=== PATIENT | female | born 1940 | race American Indian/Alaskan Native ===

== ENCOUNTER 2016-10-30 19:13 | Observation (INO) | payer MEDICARE ==
[2016-10-30 19:13] VITALS: BMI 31.7
[2016-10-30 21:16] LABS: ADD MANUAL DIFF? NO
[2016-10-30 21:25] LABS: BASO # 0.01 [, K/mm3] (0.0-2.0); BASO % 0.2 % (0.0-3.0); EOS # 0.2 (0.0-0.7); EOS % 2.4 % (1.5-5.0); GRAN # 4.15 (1.4-6.5); GRAN % 62.8 % (50.0-68.0); HEMATOCRIT 39.3 % (36.0-48.0); LYMPH # 1.7 (1.2-3.4); LYMPH % 26.1 % (22.0-35.0); MEAN CELL VOLUME 86.6 fL (80.0-105.0); MEAN CORPUSCULAR HEMOGLOBIN 29.3 pg (25.0-35.0); MEAN CORPUSCULAR HGB CONC 33.8 g/dl (31.0-37.0); MEAN PLATELET VOLUME 8.6 fl (7.0-11.0); MONO # 0.6 (0.1-0.6); MONO % 8.5 % (1.0-6.0); PLATELET COUNT 359 [, 10^3/uL] (120.0-450.0); RED CELL DISTRIBUTION WIDTH 14.3 % (11.5-14.5); WHITE BLOOD COUNT 6.6 [, 10^3/ul] (4.5-11.0)
[2016-10-30 21:29] LABS: ALB/GLOB RATIO 1.1 (1.1-1.8); ALKALINE PHOSPHATASE 108 U/L (38-133); ALT/SGPT 26 U/L (7-56); AST/SGOT 24 U/L (15-39); BILIRUBIN,TOTAL 0.5 mg/dL (0.2-1.3); BLOOD UREA NITROGEN 12 mg/dL (7-21); CALCIUM 9.4 mg/dL (8.4-10.5); CARBON DIOXIDE 29 mmol/L (21-33); CHLORIDE 101 mmol/L (98-107); GFR AFRICAN-AMERICAN > 60; GLUCOSE,RANDOM 99 mg/dL (70-110); POTASSIUM 3.5 mmol/L (3.6-5.0); SODIUM 141 mmol/L (132-148); TOTAL PROTEIN 8.9 g/dL (5.8-8.3); URINE APPEARANCE CLEAR (CLEAR); URINE BILIRUBIN NEGATIVE (NEGATIVE); URINE BLOOD TRACE-LYSED (NEGATIVE); URINE COLOR YELLOW (YELLOW); URINE GLUCOSE (UA) NEGATIVE (NEGATIVE); URINE KETONE NEGATIVE (NEGATIVE); URINE LEUKOCYTE ESTERASE TRACE Leu/uL (NEGATIVE); URINE PROTEIN NEGATIVE mg/dL (<30 mg/dL); URINE UROBILINOGEN 0.2 E.U./dL (<1 E.U./dL)
[2016-10-30 21:34] LABS: URINE BACTERIA FEW (NEG); URINE RBC 0 - 2 /hpf (0-2)
[2016-10-30 21:41] LABS: TROPONIN I 0.02 ng/mL
--- NOTE | 2016-10-31 01:58 | ED PDOC ---
Arrival/HPI - General Historian: Patient, Family <Jhoana Camacho - Last Filed: 10/31/16 01:59> <Matthew Butcher - Last Filed: 10/31/16 02:34> - General Chief Complaint: Dizziness/Lightheaded Time Seen by Provider: 10/30/16 19:42 - History of Present Illness Narrative History of Present Illness (Text): 10/31/16 01:54 75-year-old female presents today with Dizziness weakness and near syncope that started this morning. Patient states she always is a little dizzy but this morning she was extremely dizzy to the point where she was unable to get out of bed. Patient states when she was able to get out of bed it was as if she was going to pass out. Patient states she has been feeling generally weak over the past few days and is having difficulty doing daily routine due to significant weakness. No vomiting or diarrhea. No chest pain or shortness of breath. Patient states she's been taking meclizine for dizziness without improvement. No other complaints (Jhoana Camacho) Past Medical History - Provider Review Nursing Documentation Reviewed: Yes - Travel History Have you recently traveled outside [place] w/in the past 3 mons?: No - Cardiac Hx Cardiac Disorders: Yes Hx Hypertension: Yes - Pulmonary Hx Respiratory Disorders: Yes (H/O OF SMOKING CIGARETTES) - Neurological Hx Neurological Disorder: Yes (VERTIGO,NEAR SYNCOPE) Hx Dizziness: Yes - HEENT Hx HEENT Disorder: Yes Other/Comment: MENIERE's Disease - Renal Hx Renal Disorder: No - Endocrine/Metabolic Hx Hypothyroidism: Yes - Hematological/Oncological Hx Blood Disorders: No - Integumentary Hx Dermatological Disorder: No - Musculoskeletal/Rheumatological Hx Musculoskeletal Disorders: Yes (RIGHT KNEE ARTHROSCOPY) Hx Falls: Yes Hx Spinal Stenosis: Yes Hx Unsteady Gait: Yes Other/Comment: SCIATICA. rotator cuff tear to left shoulder. carpal tunnel syndrome - Gastrointestinal Hx Gastrointestinal Disorders: No - Genitourinary/Gynecological Hx Genitourinary Disorders: No - Psychiatric Hx Psychophysiologic Disorder: No Hx Substance Use: No - Surgical History Hx Cholecystectomy: Yes - Anesthesia Hx Anesthesia: No Hx Anesthesia Reactions: No Hx Malignant Hyperthermia: No <Jhoana Camacho - Last Filed: 10/31/16 01:59> Family/Social History - Physician Review Nursing Documentation Reviewed: Yes Family/Social History: Unknown Family HX Smoking Status: Former Smoker Hx Alcohol Use: No Hx Substance Use: No <RodJhoana guadalupe Rima - Last Filed: 10/31/16 01:59> Allergies/Home Meds <DougJhoana T - Last Filed: 10/31/16 01:59> <GuadalupeMatthew - Last Filed: 10/31/16 02:34> Allergies/Adverse Reactions: Allergies No Known Allergies Allergy (Verified 07/06/16 11:39) Home Medications: Home Meds Medication Instructions Recorded Confirmed Hydrochlorothiazide [Microzide] 12.5 mg PO DAILY 07/06/16 07/06/16 Levothyroxine [Synthroid] 75 mcg PO DAILY 07/06/16 07/06/16 Lisinopril [Zestril] 10 mg PO DAILY 07/06/16 07/06/16 Meclizine HCl 12.5 mg PO PRN PRN 07/06/16 07/06/16 Simvastatin 20 mg PO HS 07/06/16 07/06/16 amLODIPine [Norvasc] 10 mg PO DAILY 07/06/16 07/06/16 Review of Systems - Review of Systems Constitutional: absent: Fatigue, Fevers Eyes: absent: Vision Changes, Photophobia, Eye Pain Respiratory: absent: SOB, Cough Cardiovascular: absent: Chest Pain, Palpitations Gastrointestinal: absent: Abdominal Pain, Nausea, Vomiting Musculoskeletal: absent: Arthralgias Skin: absent: Rash, Pruritis Neurological: Dizziness. absent: Headache, Focal Weakness, Disequilibrium Psychiatric: absent: Anxiety, Depression, Suicidal Ideation <RodanayeliJhoana T - Last Filed: 10/31/16 01:59> Physical Exam Vital Signs Reviewed: Yes Temperature: Afebrile Blood Pressure: Normal Pulse: Regular Respiratory Rate: Normal Appearance: Positive for: Well-Appearing, Non-Toxic, Comfortable Pain Distress: None Mental Status: Positive for: Alert and Oriented X 3 - Systems Exam Head: Present: Atraumatic Pupils: Present: PERRL Extroacular Muscles: Present: EOMI Conjunctiva: Present: Normal Ears: Present: Normal, NORMAL TM Mouth: Present: Moist Mucous Membranes Pharnyx: Present: Normal Neck: Present: Normal Range of Motion, Trachea Midline Respiratory/Chest: Present: Clear to Auscultation, Good Air Exchange. No: Respiratory Distress, Accessory Muscle Use Cardiovascular: Present: Regular Rate and Rhythm, Normal S1, S2. No: Murmurs Abdomen: No: Tenderness Upper Extremity: Present: Normal ROM Lower Extremity: Present: Normal ROM Neurological: Present: GCS=15 Skin: Present: Warm, Dry, Normal Color. No: Rashes Psychiatric: Present: Alert, Oriented x 3 <Jhoana Camacho - Last Filed: 10/31/16 01:59> Medical Decision Making <Jhoana Camacho - Last Filed: 10/31/16 01:59> <Matthew Butcher - Last Filed: 10/31/16 02:34> ED Course and Treatment: 10/31/16 01:56 75yr old female with near syncope and dizziness. with generalized weakness. cbc: wnl cmp; wnl trop; wnl ua; trace leukocytes ct head; FINDINGS: Brain: There is moderate diffuse cerebral atrophy present, consistent with this patient's age.Areas of decreased attenuation noted within the periventricular and subcortical white matter likely related to chronic microangiopathic ischemic changes given the patient's stated age.Streak artifact limits evaluation of the skull base. No evidence of acute intracranial hemorrhage. Correlate clinically. Ventricles: Unremarkable. No ventriculomegaly. Bones/joints: See above. Soft tissues: Unremarkable. Vasculature: Atherosclerotic calcifications of the carotid siphons. Sinuses: Unremarkable as visualized. No acute sinusitis. Mastoid air cells: Unremarkable as visualized. No mastoid effusion. IMPRESSION: Streak artifact limits evaluation of the skull base. No evidence of acute intracranial hemorrhage. CT can miss an acute nonhemorrhagic CVA. It should be noted that acute strokes may be initially radiologically occult on CT. If the patient is having persistent stroke like symptomatology, then MRI may be beneficial. ekg; normal sinus rhythm at 76 bpm normal axis normal intervals no ST elevations cxr; wnl case discussed with Dr. Mauricio. Will admit observational status to telemetry for near syncope asa po Meclizine given by mouth impression: Near syncope, dizziness Admit telemetry observation 10/31/16 01:59 (Jhoana Camacho) - Lab Interpretations Lab Results: 10/30/16 21:00 10/30/16 21:00 Lab Results 10/30/16 21:00: WBC 6.6 D, RBC 4.54, Hgb 13.3, Hct 39.3, MCV 86.6, MCH 29.3, MCHC 33.8, RDW 14.3, Plt Count 359, MPV 8.6, Gran % 62.8, Lymph % (Auto) 26.1, Bay % (Auto) 8.5 H, Eos % (Auto) 2.4, Baso % (Auto) 0.2, Gran # 4.15, Lymph # 1.7, Bay # 0.6, Eos # 0.2, Baso # 0.01 10/30/16 21:00: Sodium 141, Potassium 3.5 L, Chloride 101, Carbon Dioxide 29, Anion Gap 15, BUN 12, Creatinine 0.9, Est GFR ( Amer) > 60, Est GFR (Non- Af Amer) > 60, Random Glucose 99, Calcium 9.4, Total Bilirubin 0.5, AST 24, ALT 26, Alkaline Phosphatase 108, Lactate Dehydrogenase 463, Total Creatine Kinase 87, Troponin I 0.02, Total Protein 8.9 H, Albumin 4.6, Globulin 4.3, Albumin/ Globulin Ratio 1.1 10/30/16 21:00: Urine Color Yellow, Urine Appearance Clear, Urine pH 7.0, Ur Specific [place] <= 1.005, Urine Protein Negative, Urine Glucose (UA) Negative, Urine Ketones Negative, Urine Blood Trace-lysed H, Urine Nitrate Negative, Urine Bilirubin Negative, Urine Urobilinogen 0.2, Ur Leukocyte Esterase Trace H , Urine RBC 0 - 2, Urine WBC 1 - 3, Ur Epithelial Cells 3 - 4, Urine Bacteria Few - RAD Interpretation Radiology Orders: 10/30/16 19:42 CHEST PORTABLE [RAD] Stat 10/30/16 19:43 HEAD W/O CONTRAST [CT] Stat - Medication Orders Current Medication Orders: Discontinued Medications Aspirin (Aspirin) 325 mg PO STAT STA Stop: 10/31/16 01:56 Last Admin: 10/31/16 02:07 Dose: 325 mg Meclizine HCl (Antivert) 12.5 mg PO STAT STA Stop: 10/31/16 00:48 Last Admin: 10/31/16 01:27 Dose: 12.5 mg - PA / MULTIPLE [employer]WMEMBER / Resident Statement MIROSLAVA has reviewed & agrees with the documentation as recorded. MIROSLAVA has examined the patient and agrees with the treatment plan. <Matthew Butcher - Last Filed: 10/31/16 02:34> Disposition/Present on Arrival - Present on Arrival Any Indicators Present on Arrival: No History of DVT/PE: No History of Uncontrolled Diabetes: No Urinary Catheter: No History of Decub. Ulcer: No History Surgical Site Infection Following: None - Disposition Have Diagnosis and Disposition been Completed?: Yes Disposition Time: 00:10 Patient Plan: Observation, Telemetry <Jhoana Camacho - Last Filed: 10/31/16 01:59> <Matthew Butcher - Last Filed: 10/31/16 02:34> - Disposition Diagnosis: Near syncope Disposition: HOSPITALIZED Patient Problems: Current Active Problems Problem Status Onset Near syncope Acute Condition: FAIR
--- NOTE | 2016-10-31 07:18 | CT ---
PROCEDURE: CT HEAD WITHOUT CONTRAST. HISTORY: dizziness COMPARISON: Comparison is made to the previous study dated 07/06/2016 TECHNIQUE: Axial computed tomography images were obtained through the head/brain without intravenous contrast. Radiation dose: Total exam DLP = 822.62 mGy-cm. This CT exam was performed using one or more of the following dose reduction techniques: Automated exposure control, adjustment of the mA and/or kV according to patient size, and/or use of iterative reconstruction technique. FINDINGS: HEMORRHAGE: No intracranial hemorrhage. BRAIN: No mass effect or edema. Periventricular hypodensities are again noted more prominent at the right coronal radiata centrum semiovale likely represent chronic microvascular ischemic disease. VENTRICLES: Unremarkable. No hydrocephalus. CALVARIUM: Unremarkable. PARANASAL SINUSES: Unremarkable as visualized. No significant inflammatory changes. MASTOID AIR CELLS: Unremarkable as visualized. No inflammatory changes. OTHER FINDINGS: None. IMPRESSION: No evidence of acute intracranial hemorrhage territorial infarct mass effect or midline shift. Re- demonstration of periventricular hypodensities likely represent chronic microvascular ischemic disease. Preliminary report was submitted by virtual Radiology.
--- NOTE | 2016-10-31 07:39 | RAD ---
HISTORY: dizziness, weakness COMPARISON: Comparison is made to 07/06/2016 FINDINGS: LUNGS: No active pulmonary disease. PLEURA: No significant pleural effusion identified, no pneumothorax apparent. CARDIOVASCULAR: Normal. OSSEOUS STRUCTURES: Arthritic degenerative changes seen at the shoulders. Small metallic structure seen at the left shoulder likely due to prior rotator cuff tear repair VISUALIZED UPPER ABDOMEN: Normal. OTHER FINDINGS: None. IMPRESSION: No active disease. No significant interval change.
[2016-10-31] MEDS: Levothyroxine 75 MCG TAB PO SCH (08:15)
--- NOTE | 2016-10-31 09:56 | CARD ---
APPROVED REPORT EKG Measurement Heart [id number] <Conclusion> Normal sinus rhythm Normal ECG
--- NOTE | 2016-10-31 14:04 | CON ---
DATE: 10/31/2016 CHIEF COMPLAINT: Dizziness and lightheadedness. HISTORY OF PRESENT ILLNESS: This is a 75-year-old -[place] woman who is well known to me fro m a previous admission in 06/2016 with past medical history of chronic back pain with L2-L3 and L4-L5 lumbosacral radiculopathies, chronic back pain with musculoskeletal component, history of hypothyroid ism, hypertension, spinal stenosis, vertigo with B12 deficiency, currently not taking B12, last B12 l evel was 168, comes in with generalized weakness in terms of near syncope and lightheadedness. She s ays she gets up from a sitting to a standing position and gets lightheaded and feels like she is areli g to pass out. Her blood pressures have been on the lower side systolically and diastolically. She says she is taking meclizine for dizziness, which she has not had any improvement. She has not done any vestibular therapy. She denies any focal weakness or any paresthesias in the extremities. She d oes not drink adequate fluids throughout the day. Her initial blood pressure is 108/99. She is curr ently sitting up in no acute distress. PAST MEDICAL HISTORY: Hypothyroidism, spinal stenosis, chronic low back pain, vertigo, hypertension. ALLERGIES: No known drug allergies. MEDICATIONS: Reviewed via nurse's reconciliation sheet. SOCIAL HISTORY: No illicit drug use, smoking, or ETOH abuse. FAMILY HISTORY: Noncontributory. REVIEW OF SYSTEMS: A 14-point review of systems is negative except for the HPI. PHYSICAL EXAMINATION: VITAL SIGNS: Temperature 98, pulse rate is 61, blood pressure 108/79 and respiratory rate of 18, oxy gen saturation 99% on room air. GENERAL: The patient is sitting up in bed in no acute distress. HEENT: Atraumatic, normocephalic. PERRLA. Extraocular muscles intact. NECK: Supple, no JVD, no adenopathy noted. LUNGS: Clear to auscultation. No adventitious sounds. HEART: S1, S2, normal rate and rhythm. No murmurs, rubs, or gallops. ABDOMEN: Soft, nontender, nondistended. Bowel sounds are present. EXTREMITIES: No clubbing, no cyanosis. Peripheral pulses 2+ felt bilaterally. NEUROLOGIC: The patient is alert, oriented to person, place, month and year. Speech is fluent, with out any errors. Cranial nerves II through XII are intact. MOTOR EXAM: Moves all extremities equally. Toes downgoing bilaterally. SENSORY: Decreased light touch and pinprick up to the calves bilaterally. DTRs are 2+ throughout an d 1 at the knees and ankles. COORDINATION: [id number] is intact. Gait is deferred for now. LABORATORY DATA: Sodium is 141, potassium 3.5, chloride 101, carbon dioxide 29, BUN of 12, creatinin e 0.9, random glucose 99. ASSESSMENT AND PLAN: This is a 75-year-old -[place] woman with history of vertigo, history o f near syncope in terms of lightheadedness, history of spinal stenosis with chronic back pain at L2-L 3 and L4-L5 lumbosacral radiculopathies with musculoskeletal component, history of hypothyroidism, ca me to the hospital with history of B12 deficiency with last low B12 level 168, has not been taking B1 2 supplementation, who came in with near syncope, felt lightheaded when getting up from a sitting to a standing position, felt generalized weakness in the bed, felt like she was going to pass out and fe lt generally weak all over and been having difficulty doing her activities of daily living. She does not hydrate throughout the day. I feel like her dizziness is more of transient cerebral hypoperfusi on to the brain from lightheadedness with a vertiginous component and deconditioned state. I recomme nd: 1. Physical therapy as an outpatient for underlying deconditioned state. 2. Should have B12 supplementation, at least 1000 mcg p.o. daily. 3. Keep her systolic blood pressures between 120-130 mmHg and advise hydration. 4. Outpatient vestibular therapy for the vertiginous part. At this time, continue with current medical management and will get a carotid Doppler. Please recons ult if necessary. Thank you for this consult. Preston Bridges MD cc: [id number] TT: 10/31/2016 14:04:12 Confirmation # [id number] Dictation # [id number] wagner
--- NOTE | 2016-10-31 15:21 | HP ---
CHIEF COMPLAINT AND HISTORY OF PRESENT ILLNESS: This is a 75-year-old female who is coming into the hospital with complaints of dizziness. She states she has a history of vertigo and has been using Antivert 12.5 mg. She said that the dizziness was much worse yesterday. She said she had a difficult time getting out of bed. She was not able to ambulate well. She was weak. She came in for further evaluation. She denies any chest pain, no shortness of breath, no nausea, no vomiting. She says that she has M?ni?re's disease. REVIEW OF SYSTEMS: All other review of systems are within normal limits except as mentioned. PAST MEDICAL HISTORY: Hypertension, dyslipidemia, hypothyroidism, spinal stenosis, vertigo. ALLERGIES: No known drug allergies. MEDICATIONS: Hydrochlorothiazide, levothyroxine, lisinopril, meclizine, simvastatin, amlodipine. PAST SURGICAL HISTORY: 1. Carpal tunnel surgery of both hands. 2. Right knee arthroscopy. 3. Cholecystectomy. SOCIAL HISTORY: She is a former smoker. She drinks socially. FAMILY HISTORY: Noncontributory. PHYSICAL EXAMINATION: VITAL SIGNS: Temperature is 98, pulse of 61, blood pressure 133/59, height is 5 feet 10, weight is 210 pounds, respirations 14. GENERAL: Patient lying in bed, flat, and in no apparent distress. HEAD AND NECK EXAM: Atraumatic, normocephalic. Conjunctivae are pink. Throat clear and mouth with moist mucosa. Oropharynx benign. EYES: Extraocular movements are intact. PERRLA. NECK: Supple. No JVD, thyromegaly, or adenopathy. No bruits. HEART: S1 and S2 regular rate and rhythm. No murmurs, rubs, or gallops. LUNGS: Clear to auscultation bilaterally. No wheezing rales or rhonchi appreciated. No retractions on exam. ABDOMEN: Soft, nontender, nondistended. Bowel sounds are positive in all quadrants. No rebound. No hepatosplenomegaly. EXTREMITIES: No cyanosis, clubbing, or edema. NEURO: No facial asymmetry, tongue is midline, no uvula deviation. Power is 5 /5 in upper extremity and 5/5 in lower extremity. Sensation is normal in upper extremity and lower extremity. PSYCH: Awake, alert, oriented x3. No anxiety or depression symptoms. Good insight. Normal affect. : No CVA tenderness VASCULAR: 2+ pulses in carotid and pedal pulses. SKIN: No erythema or abnormal nodules noted. SPINE: Normal curvature. LYMPHADENOPATHY: No anterior cervical or posterior cervical adenopathy. No inguinal adenopathy. LABORATORY DATA: White count of 6.6, hemoglobin 13.3, platelets . Chemistry shows a sodium 141, potassium 3.5. Urine shows blood that is trace, nitrites are negative, bilirubin is negative. CT of the head that showed no evidence of acute intracranial hemorrhage. EKG shows sinus rhythm with a rate of 76. Chest x-ray shows no active disease. ASSESSMENT: 1. Vertigo. 2. Dyslipidemia. 3. Hypertension. 4. Hypothyroidism. PLAN: The patient is going to be admitted to the hospital. I have asked neurology to evaluate the patient. The patient is on Zestril for hypertension. She is going to be on Synthroid for hypothyroidism. She is on hydrochlorothiazide for hypertension also. I increased her meclizine to 25 mg. She is on amlodipine for her hypertension. She is on Lipitor for dyslipidemia. I will get neuro and cardiology to evaluate the patient. I will discontinue the patient's telemetry monitoring. The patient's troponin has been negative. Ivan Mauricio MD cc: [id number] TT: 10/31/2016 15:21:08 wagner DIA
--- NOTE | 2016-10-31 17:43 | US ---
PROCEDURE: Bilateral carotid artery duplex ultrasound HISTORY: Carotid stenosis syncope PHYSICIAN(S): Nav Peralta MD. TECHNIQUE: Duplex sonography and color-flow Doppler were used to evaluate the carotid bifurcations and limited segments of the vertebral arteries bilaterally. FINDINGS: There is mild to moderate diffuse heterogeneous echogenic plaque noted at the carotid bifurcations bilaterally. The peak systolic velocity in the proximal right internal carotid artery is 112 cm/sec. This corresponds to a 40-59 percent proximal right ICA stenosis. Normal systolic velocities are noted in the proximal right external carotid artery. There is antegrade flow in the right vertebral artery. The peak systolic velocity in the proximal left internal carotid artery is 98 cm/sec. This corresponds to a 20 to 39% proximal left ICA stenosis. Normal systolic velocities are noted in the proximal left external carotid artery. The left vertebral artery is not visualized and may be occluded. IMPRESSION: 1. 40-59 percent proximal right ICA stenosis. 2. 20 - 39 percent proximal left ICA stenosis. 3. Antegrade flow in the right vertebral artery. The left vertebral artery is not identified may be occluded.
--- NOTE | 2016-11-01 07:07 | PN ---
DATE: 11/01/2016 SUBJECTIVE: The patient has no complaints of any chest pain, no shortness of breath. She says that she gets dizziness at times. PHYSICAL EXAMINATION: VITAL SIGNS: Temperature is 97.8, pulse of 67, blood pressure 116/62, respiration is 20. GENERAL: The patient comfortable, in no acute distress. HEENT: Anicteric sclerae. Moist mucosa. NECK: No JVD or adenopathy. CARDIAC: S1/S2. No murmurs. No rubs. Regular. RESPIRATORY: Clear to auscultation bilaterally. No wheezes, rales, or rhonchi. Good air entry. ABDOMEN: Bowel sounds are positive, soft, nontender, and nondistended. EXTREMITIES: No edema. Has 1+ pulses. ASSESSMENT: 1. Vertigo. 2. Dyslipidemia. 3. Hypertension. 4. Hypothyroidism. PLAN: The patient is on her Antivert. She was seen by neurology. She is currently off telemetry. She has carotid Dopplers that are reviewed. Zestril and HCTZ for hypertension. She is going to be on Synthroid for hypothyroidism. I increased her meclizine to 25 mg. She is on amlodipine for her hypertension. She is on Lipitor for dyslipidemia. Will D/C after Echo. Ivan Mauricio MD cc: [id number] TT: 11/01/2016 07:07:33 Confirmation # [id number] Dictation # [id number] nela DIA
[2016-11-01] MEDS: Levothyroxine 75 MCG TAB PO SCH (08:17)
[2016-11-01 08:37] VITALS: BP 123/70; PULSE 62; RESP 18; TEMP 98; O2SAT 99
--- NOTE | 2016-11-01 12:10 | CON ---
DATE: 11/01/2016 REQUESTING PHYSICIAN: Dr. Mauricio. REASON FOR CONSULTATION: Near syncope. HISTORY OF PRESENT ILLNESS: This is a 75-year-old woman with a history of hypertension and hyperlipidemia who presents to the Emergency Room complaining with severe dizziness. She states she was admitted several months ago for similar complaints and workup was unremarkable. She has been told she has a history of Meniere's disease. She denies any palpitations. She had no chest pain or dyspnea. She is unaware of any palpitations. Initial workup has been unremarkable. PAST MEDICAL HISTORY: Notable for hypothyroidism and a history of spinal stenosis. A prior cholecystectomy, right knee arthroscopy and carpal tunnel surgery. Prior rotator cuff surgery. MEDICATIONS: At home include simvastatin, amlodipine, lisinopril, meclizine, Synthroid and hydrochlorothiazide. SOCIAL HISTORY: She is a former smoker. She has occasional alcohol, but not to excess. ALLERGIES: None. FAMILY HISTORY: Both parents are from age-related illness. REVIEW OF SYSTEMS: A 10-point review of systems is otherwise unremarkable. PHYSICAL EXAMINATION: GENERAL: She is an elderly woman who appears comfortable at the present time. VITAL SIGNS: Blood pressure is 122/70 with a pulse of 66, respirations are 16. She is afebrile. HEENT: Normocephalic, atraumatic. NECK: Supple, no JVD noted. CHEST: Clear to auscultation and percussion. HEART: Systolic murmur is present in left sternal border. PMI is in normal position. No pathologic murmur or gallops noted. ABDOMEN: Soft, nontender, normoactive bowel sounds. EXTREMITIES: No clubbing, cyanosis or edema. SKIN: Warm and dry. PSYCHIATRIC: Normal mood and affect. NEUROLOGIC: Alert and oriented x 3. No gross motor or sensory deficits appreciable. DIAGNOSTIC DATA: White count is 6.6, hemoglobin and hematocrit are 13.3 and 39.3 with a platelet count of 359,000. Potassium is 3.5, BUN and creatinine are 12 and 0.9, glucose 99. Troponin 0.02. Total protein mildly elevated at 8.9 with an albumin of 4.6. Chest x-ray reveals normal cardiac silhouette with clear lung silverio. Electrocardiogram reveals sinus rhythm with no acute abnormalities. Carotid ultrasound reveals moderate proximal right ICA stenosis as well as mild left proximal ICA stenosis. IMPRESSION: 1. Near syncope, etiology unclear. No clear cardiac cause identified thus far. Mild to moderate carotid disease not likely playing a role. 2. History of Meniere's disease that may be the underlying cause for her current symptoms. RECOMMENDATIONS: An echocardiogram has been ordered and will be reviewed. Assuming this is unremarkable and no significant dysrhythmias are documented, discharge home with outpatient followup can be arranged. Fall precautions were discussed with her. Thank you for this consultation. Ramy Christine MD cc: [id number] TT: 11/01/2016 12:09:31 Confirmation # [id number] Dictation # [id number] nela DIA
--- NOTE | 2016-11-02 10:02 | CARD ---
APPROVED REPORT EXAM: Two-dimensional and M-mode echocardiogram with Doppler and color Doppler. Other Information Quality : GoodRhythm : INDICATION NEAR SYNCOPE 2D DIMENSIONS Left Atrium (2D)3.3 (1.6-4.0cm)IVSd0.9 (0.7-1.1cm) LVDd4.1 (3.9-5.9cm)PWd1.0 (0.7-1.1cm) LVDs2.8 (2.5-4.0cm)FS (%) 33.3 % LVEF (%)62.0 (>50%) M-Mode DIMENSIONS Aortic Root2.60 (2.2-3.7cm)Aortic Cusp Exc.1.50 (1.5-2.0cm) Aortic Valve AoV Peak Uduhsvsc773.0cm/sAoV VTI36.5cmLVOT Peak Ashxvfah01.2cm/s LVOT VTI20.10cmAO Mean GR.6mmHg Mitral Valve MV E Porllqql70.4cm/sMV A Ffgfpfzn10.3cm/sE/A ratio0.7 TDI Lateral E' Peak V8.29cm/sE/Lateral E'7.4E/Medial E'0.0 Pulmonary Valve PV Peak Umonbxvy08.3cm/sPV Peak Grad.2mmHg Tricuspid Valve TR Peak Dvgbnchw579lp/sRAP PJACJWUC71pmOcVL Peak Gr.30mmHg [id number] LEFT VENTRICLE The left ventricle is normal size. There is normal left ventricular wall thickness. The left ventricular function is normal. The left ventricular ejection fraction is within the normal range. There is normal LV segmental wall motion. RIGHT VENTRICLE The right ventricle is normal size. ATRIA The left atrium size is normal. The right atrium size is normal. The interatrial septum is intact with no evidence for an atrial septal defect. AORTIC VALVE The aortic valve is mildly calcified. MITRAL VALVE The mitral valve is normal in structure. Mitral regurgitation is trace. TRICUSPID VALVE The tricuspid valve is normal in structure. There is moderate tricuspid regurgitation. PULMONIC VALVE The pulmonic valve is not well visualized. GREAT VESSELS The aortic root is normal in size. PERICARDIAL EFFUSION There is no pericardial effusion. <Conclusion> The left ventricle is normal size. There is normal left ventricular wall thickness. The left ventricular function is normal. The aortic valve is mildly calcified. Aortic sclerosis. There is moderate tricuspid regurgitation.
== END 2016-11-01 16:50 | disposition home or self-care (01) ==
LOC: ED 19:13 → ERH 10-31 00:58 → 2RSO 10-31 03:37 → 3RSO 10-31 20:10
PROVIDERS: ADMIT Internal Medicine Nephrology; ATTEND Internal Medicine Nephrology
DX: R42 Dizziness and giddiness (principal); E78.5 Hyperlipidemia, unspecified; I10 Essential (primary) hypertension; E03.9 Hypothyroidism, unspecified; M48.06 Spinal stenosis, lumbar region; M54.17 Radiculopathy, lumbosacral region; E53.8 Deficiency of other specified B group vitamins; Z87.891 Personal history of nicotine dependence; R55 Syncope and collapse
CPT/HCPCS: 70450; 71010; 80053; 81001; 82550; 83615; 84484; 85025; 87086; 93005; 93306; 93880; 97116; 97162; 99285; G0378; G8978; G8979; G8980

== ENCOUNTER 2017-05-10 12:17 | Emergency (ER) | payer MEDICARE ==
[2017-05-10 12:18] VITALS: BMI 31.7
[2017-05-10 12:26] VITALS: TEMP 98.1
--- NOTE | 2017-05-10 12:54 | ED PDOC ---
Arrival/HPI - General Chief Complaint: Lower Extremity Problem/Injury Time Seen by Provider: 05/10/17 12:46 Historian: Patient - History of Present Illness Narrative History of Present Illness (Text): 05/10/17 12:55 76 y/o female c/o right knee pain that began yesterday. Patient reports that she had trouble getting up last year and as she got up she heard a pop". Patient took naproxen with some relief for pain. Denies trauma, weakness, numbness, or any other complaints. PMD: Criss Mosher Time/Duration: 24 hours Quality: Other Past Medical History - Provider Review Nursing Documentation Reviewed: Yes - Cardiac Hx Cardiac Disorders: Yes Hx Hypertension: Yes - Pulmonary Hx Respiratory Disorders: Yes (H/O OF SMOKING CIGARETTES) - Neurological Hx Neurological Disorder: Yes (VERTIGO,NEAR SYNCOPE) Hx Dizziness: Yes Hx Vertigo: Yes - HEENT Hx HEENT Disorder: Yes Other/Comment: MENIERE's Disease - Renal Hx Renal Disorder: No - Endocrine/Metabolic Hx Hypothyroidism: Yes - Hematological/Oncological Hx Blood Disorders: No - Integumentary Hx Dermatological Disorder: No - Musculoskeletal/Rheumatological Hx Musculoskeletal Disorders: Yes (RIGHT KNEE ARTHROSCOPY) Hx Back Pain: Yes Hx Falls: Yes Hx Spinal Stenosis: Yes Hx Unsteady Gait: Yes Other/Comment: SCIATICA. rotator cuff tear to left shoulder. carpal tunnel syndrome - Gastrointestinal Hx Gastrointestinal Disorders: No - Genitourinary/Gynecological Hx Genitourinary Disorders: No - Psychiatric Hx Psychophysiologic Disorder: No Hx Substance Use: No - Surgical History Hx Cholecystectomy: Yes Hx Orthopedic Surgery: Yes - Anesthesia Hx Anesthesia: No Hx Anesthesia Reactions: No Hx Malignant Hyperthermia: No Family/Social History - Physician Review Nursing Documentation Reviewed: Yes Family/Social History: No Known Family HX Smoking Status: Former Smoker Hx Alcohol Use: No Hx Substance Use: No Allergies/Home Meds Allergies/Adverse Reactions: Allergies No Known Allergies Allergy (Verified 05/10/17 12:19) Home Medications: Home Meds Medication Instructions Recorded Confirmed Levothyroxine [Synthroid] 75 mcg PO DAILY 07/06/16 05/10/17 Lisinopril [Zestril] 10 mg PO DAILY 07/06/16 05/10/17 Simvastatin 20 mg PO HS 07/06/16 05/10/17 amLODIPine [Norvasc] 10 mg PO DAILY 07/06/16 05/10/17 Review of Systems - Physician Review All systems were reviewed & negative as marked: Yes - Review of Systems Respiratory: absent: SOB Cardiovascular: absent: Chest Pain Physical Exam - Physical Exam Narrative Physical Exam (Text): 05/10/17 12:58 Constitutional: No acute distress. Head: Normocephalic. Atraumatic. Eyes: PERRL. ENT: Moist mucous membranes. Neck: Supple. Cardiovascular: Regular rate. Radial pulse 2+ bilaterally. Chest: No tenderness. Respiratory: Clear to auscultation bilaterally. GI: Soft. Nontender. Nondistended. Back: No CVA tenderness. Musculoskeletal: FROM bilateral extremity. No pateller tenderness no lateral tenderness. Right lower extremity edematous compared to the left. No warmth, erythema, or bony tenderness. Skin: No rash. Neurologic: Alert, no focal deficit. Vital Signs Temp Pulse Resp BP Pulse Ox 05/10/17 15:12 90 18 121/80 17 L 05/10/17 14:00 89 18 120/75 98 05/10/17 12:21 98.1 F 97 H 17 119/71 97 Medical Decision Making ED Course and Treatment: 05/10/17 12:54 Plans: * XRAY right knee * UA Duplex lower ext, right Patient decline any pain meds. 05/10/17 14:38 PROCEDURE: Right Knee Radiographs. HISTORY: knee pain COMPARISON: None. FINDINGS: BONES: Normal. No fracture. JOINTS: There is severe joint space narrowing in the lateral compartment. Small osteophytes are seen in the medial compartment. Patellofemoral joint is unremarkable JOINT EFFUSION: None. OTHER FINDINGS: None. IMPRESSION: Osteoarthritis FINDINGS: The visualized deep venous system of the right lower extremity is sonographically normal and compressible. Normal waveforms and augmentation are seen. There is no sonographic evidence for deep venous thrombosis in the visualized segments of the right lower extremity. IMPRESSION: 1. No sonographic evidence for deep venous thrombosis in the visualized segments of the right lower extremity. Patient discharged, f/u primary care, obtain MRI if persistent after 2-3 weeks. Return to ED for worsening pain, fever, inability to range, redness. Otherwise, compress, rest, ice, elevate. KASSI wrap provided. - RAD Interpretation Radiology Orders: 05/10/17 12:46 KNEE RIGHT 2 VIEWS (AP & LAT) [RAD] Stat DUPLEX LOWER EXTRM VEIN RIGHT [US] Stat - Scribe Statement The provider has reviewed the documentation as recorded by the Scribe Bruce nash All medical record entries made by the Scribe were at my direction and personally dictated by me. I have reviewed the chart and agree that the record accurately reflects my personal performance of the history, physical exam, medical decision making, and the department course for this patient. I have also personally directed, reviewed, and agree with the discharge instructions and disposition. Disposition/Present on Arrival - Present on Arrival Any Indicators Present on Arrival: No History of DVT/PE: No History of Uncontrolled Diabetes: No Urinary Catheter: No History of Decub. Ulcer: No History Surgical Site Infection Following: None - Disposition Have Diagnosis and Disposition been Completed?: Yes Diagnosis: Knee pain Disposition: HOME/ ROUTINE Disposition Time: 15:02 Patient Plan: Discharge Condition: STABLE Discharge Instructions (ExitCare): Knee Pain (ED) Prescriptions: Ibuprofen [Motrin] 1 tab PO Q6 #30 tab Forms: [employer] (Thai)
--- NOTE | 2017-05-10 14:15 | RAD ---
PROCEDURE: Right Knee Radiographs. HISTORY: knee pain COMPARISON: None. FINDINGS: BONES: Normal. No fracture. JOINTS: There is severe joint space narrowing in the lateral compartment. Small osteophytes are seen in the medial compartment. Patellofemoral joint is unremarkable JOINT EFFUSION: None. OTHER FINDINGS: None. IMPRESSION: Osteoarthritis
[2017-05-10 15:12] VITALS: RESP 18
--- NOTE | 2017-05-10 15:13 | US ---
PROCEDURE: Right lower extremity venous US HISTORY: Leg pain and swelling. Evaluate for DVT. PHYSICIAN(S): Nav Peralta M.D. TECHNIQUE: Duplex sonography and color-flow Doppler with graded compression were used to evaluate the deep venous system of the right lower extremity. FINDINGS: The visualized deep venous system of the right lower extremity is sonographically normal and compressible. Normal waveforms and augmentation are seen. There is no sonographic evidence for deep venous thrombosis in the visualized segments of the right lower extremity. IMPRESSION: 1. No sonographic evidence for deep venous thrombosis in the visualized segments of the right lower extremity.
[2017-05-10 15:14] VITALS: BP 121/80; PULSE 90; O2SAT 17
== END 2017-05-10 15:13 | disposition home or self-care (01) ==
LOC: ED 12:17
DX: M25.561 Pain in right knee (principal); I10 Essential (primary) hypertension; Z87.891 Personal history of nicotine dependence

== ENCOUNTER 2017-06-29 04:34 | Emergency (ER) | payer MEDICARE ==
[2017-06-29 04:38] VITALS: BMI 31.0
[2017-06-29 04:48] VITALS: TEMP 97.9
--- NOTE | 2017-06-29 05:04 | ED PDOC ---
Arrival/HPI - General Chief Complaint: Dizziness/Lightheaded Time Seen by Provider: 06/29/17 05:01 Historian: Patient - History of Present Illness Narrative History of Present Illness (Text): 06/29/17 05:04 76 year old female with past medical history of vertigo presents to the Emergency Department complaining of dizziness and lightheadedness since 12 AM today. Patient states taking her prescribed meclizine with no improvement to symptoms. Patient informs taking another pill of meclizine half an hour later and felt slight improvement. Patent denies any headache, unilateral weakness, chest pain, shortness of breath, abdominal pain, fever, chills, nausea, vomiting , diarrhea or any other complaints. Time/Duration: 1-3 hours Symptom Onset: Gradual Symptom Course: Unchanged Activities at Onset: Light Context: Home Past Medical History - Provider Review Nursing Documentation Reviewed: Yes - Reproductive Menopause: Yes - Cardiac Hx Cardiac Disorders: Yes Hx Hypertension: Yes - Pulmonary Hx Respiratory Disorders: Yes (H/O OF SMOKING CIGARETTES) - Neurological Hx Neurological Disorder: Yes (VERTIGO,NEAR SYNCOPE) Hx Dizziness: Yes Hx Vertigo: Yes - HEENT Hx HEENT Disorder: Yes Other/Comment: MENIERE's Disease - Renal Hx Renal Disorder: No - Endocrine/Metabolic Hx Hypothyroidism: Yes - Hematological/Oncological Hx Blood Disorders: No - Integumentary Hx Dermatological Disorder: No - Musculoskeletal/Rheumatological Hx Musculoskeletal Disorders: Yes (RIGHT KNEE ARTHROSCOPY) Hx Arthritis: Yes (rheumatoid) Hx Back Pain: Yes Hx Falls: Yes Hx Spinal Stenosis: Yes Hx Unsteady Gait: Yes Other/Comment: SCIATICA. rotator cuff tear to left shoulder. carpal tunnel syndrome - Gastrointestinal Hx Gastrointestinal Disorders: No - Genitourinary/Gynecological Hx Genitourinary Disorders: No - Psychiatric Hx Psychophysiologic Disorder: No Hx Substance Use: No - Surgical History Hx Cholecystectomy: Yes Hx Orthopedic Surgery: Yes (r carpal tunnel/r knee) - Anesthesia Hx Anesthesia: No Hx Anesthesia Reactions: No Hx Malignant Hyperthermia: No Family/Social History - Physician Review Nursing Documentation Reviewed: Yes Family/Social History: Unknown Family HX Smoking Status: Former Smoker Hx Alcohol Use: No Hx Substance Use: No Allergies/Home Meds Allergies/Adverse Reactions: Allergies No Known Allergies Allergy (Verified 06/29/17 04:37) Home Medications: Home Meds Medication Instructions Recorded Confirmed Levothyroxine [Synthroid] 75 mcg PO DAILY 07/06/16 06/29/17 Lisinopril [Zestril] 10 mg PO DAILY 07/06/16 06/29/17 Simvastatin 20 mg PO HS 07/06/16 06/29/17 amLODIPine [Norvasc] 10 mg PO DAILY 07/06/16 06/29/17 Meclizine [Meclizine*] 25 mg PO TID PRN 06/29/17 06/29/17 Review of Systems - Physician Review All systems were reviewed & negative as marked: Yes - Review of Systems Constitutional: Normal. absent: Fevers Eyes: Normal ENT: Normal Respiratory: Normal. absent: SOB Cardiovascular: Normal. absent: Chest Pain Gastrointestinal: Normal. absent: Abdominal Pain, Diarrhea, Nausea, Vomiting Genitourinary Female: Normal Musculoskeletal: Normal Skin: Normal Neurological: Dizziness. absent: Headache, Focal Weakness Endocrine: Normal Hemo/Lymphatic: Normal Psychiatric: Normal Physical Exam Vital Signs Reviewed: Yes Vital Signs Temp Pulse Resp BP Pulse Ox 06/29/17 04:47 97.9 F 76 19 136/76 100 Temperature: Afebrile Blood Pressure: Normal Pulse: Regular Respiratory Rate: Normal Appearance: Positive for: Well-Appearing, Non-Toxic, Comfortable Pain Distress: None Mental Status: Positive for: Alert and Oriented X 3 Finger Stick Blood Glucose: 92 - Systems Exam Head: Present: Atraumatic, Normocephalic, Other (Cranial Nerves II-III intact ) Pupils: Present: PERRL Extroacular Muscles: Present: EOMI Conjunctiva: Present: Normal Mouth: Present: Moist Mucous Membranes Neck: Present: Normal Range of Motion Respiratory/Chest: Present: Clear to Auscultation, Good Air Exchange. No: Respiratory Distress, Accessory Muscle Use Cardiovascular: Present: Regular Rate and Rhythm, Normal S1, S2. No: Murmurs Abdomen: Present: Normal Bowel Sounds. No: Tenderness, Distention, Peritoneal Signs Back: Present: Normal Inspection Upper Extremity: Present: Normal Inspection, Other (No pronator drift. 5/5 Motor strength. ). No: Cyanosis, Edema Lower Extremity: Present: Normal Inspection. No: Edema Neurological: Present: GCS=15, CN II-XII Intact, Speech Normal, Motor Func Grossly Intact, Other (positive vladislav-hallpike when head turned to the left ) Skin: Present: Warm, Dry, Normal Color. No: Rashes Psychiatric: Present: Alert, Oriented x 3, Normal Insight, Normal Concentration Medical Decision Making ED Course and Treatment: 06/29/17 05:05 Impression: 76 year old female presents to the Emergency Department Differential Diagnosis included but are not limited to: benign positional vertigo ,anemia,electrolyte imbalance,arrhythmia Plan: -- Labs, EKG -- Meclizine -- Reassess and disposition Progress Notes: 06/29/17 06:29 - Lab Interpretations Lab Results: 06/29/17 05:00 06/29/17 05:00 Lab Results 06/29/17 05:00: Sodium 142, Potassium 3.8, Chloride 102, Carbon Dioxide 30, Anion Gap 14, BUN 10, Creatinine 0.7, Est GFR ( Amer) > 60, Est GFR (Non- Af Amer) > 60, Random Glucose 110, Calcium 9.8, Total Bilirubin 0.5, AST 61 H, ALT 54, Alkaline Phosphatase 116, Total Protein 8.3, Albumin 4.3, Globulin 3.9, Albumin/Globulin Ratio 1.1 06/29/17 05:00: WBC 6.6, RBC 4.44, Hgb 12.7, Hct 39.0, MCV 87.8, MCH 28.6, MCHC 32.6, RDW 14.7 H, Plt Count 330, MPV 8.6, Gran % 57.4, Lymph % (Auto) 33.0, [place] % (Auto) 7.8 H, Eos % (Auto) 1.5, Baso % (Auto) 0.3, Gran # 3.81, Lymph # 2.2, [place] # 0.5, Eos # 0.1, Baso # 0.02 - EKG Interpretation EKG Interpretation (Text): 06/29/17 06:26 ekg demonstrates a NSR at 75 BPM.no ectopy,all intervals wnl,no acute sttw changes - Medication Orders Current Medication Orders: Discontinued Medications Meclizine HCl (Antivert) 25 mg PO STAT STA Stop: 06/29/17 05:03 Last Admin: 06/29/17 05:13 Dose: 25 mg - Scribe Statement The provider has reviewed the documentation as recorded by the Scribe Itz Marroquin. All medical record entries made by the Scribe were at my direction and personally dictated by me. I have reviewed the chart and agree that the record accurately reflects my personal performance of the history, physical exam, medical decision making, and the department course for this patient. I have also personally directed, reviewed, and agree with the discharge instructions and disposition. Disposition/Present on Arrival - Present on Arrival Any Indicators Present on Arrival: No History of DVT/PE: No History of Uncontrolled Diabetes: No Urinary Catheter: No History of Decub. Ulcer: No History Surgical Site Infection Following: None - Disposition Have Diagnosis and Disposition been Completed?: Yes Diagnosis: Vertigo Disposition: HOME/ ROUTINE Disposition Time: 06:30 Patient Plan: Discharge Patient Problems: Current Active Problems Problem Status Onset Vertigo Acute Condition: IMPROVED Print Language: THAI Referrals: [facility] [place] [Outside] - Follow up with primary Forms: [employer] (Icelandic)
[2017-06-29 05:29] LABS: BASO # 0.02 K/mm3 (0.0-2.0); BASO % 0.3 % (0.0-3.0); EOS # 0.1 (0.0-0.7); EOS % 1.5 % (1.5-5.0); GRAN # 3.81 (1.4-6.5); GRAN % 57.4 % (50.0-68.0); HEMOGLOBIN 12.7 g/dL (12.0-16.0); LYMPH # 2.2 (1.2-3.4); MEAN CELL VOLUME 87.8 fl (80.0-105.0); MEAN CORPUSCULAR HEMOGLOBIN 28.6 pg (25.0-35.0); MEAN CORPUSCULAR HGB CONC 32.6 g/dl (31.0-37.0); MEAN PLATELET VOLUME 8.6 fl (7.0-11.0); MONO # 0.5 (0.1-0.6); MONO % 7.8 % (1.0-6.0); RBC 4.44 10^6/uL (3.5-6.1); RED CELL DISTRIBUTION WIDTH 14.7 % (11.5-14.5); WHITE BLOOD COUNT 6.6 10^3/ul (4.5-11.0)
[2017-06-29 05:41] LABS: ALB/GLOB RATIO 1.1 (1.1-1.8); ALBUMIN 4.3 g/dL (3.0-4.8); ALT/SGPT 54 U/L (7-56); AST/SGOT 61 U/L (14-36); BLOOD UREA NITROGEN 10 mg/dL (7-21); CALCIUM 9.8 mg/dL (8.4-10.5); GFR AFRICAN-AMERICAN > 60; GFR NON-AFRICAN AMERICAN > 60
[2017-06-29 06:30] VITALS: BP 145/91; PULSE 72; RESP 13; O2SAT 99
--- NOTE | 2017-06-29 19:54 | CARD ---
APPROVED REPORT EKG Measurement Heart [id number] <Conclusion> Normal sinus rhythm Normal ECG
== END 2017-06-29 08:58 | disposition home or self-care (01) ==
LOC: ED 04:34
DX: R42 Dizziness and giddiness (principal); I10 Essential (primary) hypertension; Z87.891 Personal history of nicotine dependence

== ENCOUNTER 2017-08-02 13:50 | Emergency (ER) | payer MEDICARE ==
[2017-08-02 14:00] VITALS: RESP 18; TEMP 98.3; BMI 30.1
--- NOTE | 2017-08-02 14:07 | ED PDOC ---
Arrival/HPI - General Time Seen by Provider: 08/02/17 13:53 Historian: Patient - History of Present Illness Narrative History of Present Illness (Text): 08/02/17 14:06 Suzanne Moody is a 76 year old female, whose past medical history includes hypertension and hypothyroidism, who presents to the emergency department complaining of lightheadedness and nausea since last night. Patient notes being compliant to taking her medication. Patient denies chest pain, shortness of breath, headache, fever, chills, cough, vomiting, diarrhea, abdominal pain, or other complaints. no ribeiro. reports mild leg swelling PMD: Dr. Mosher 08/02/17 17:53 Time/Duration: 24 hours Symptom Onset: Sudden Symptom Course: Unchanged Activities at Onset: Rest Context: Home Past Medical History - Provider Review Nursing Documentation Reviewed: Yes - Cardiac Hx Cardiac Disorders: Yes Hx Hypertension: Yes - Pulmonary Hx Respiratory Disorders: Yes (H/O OF SMOKING CIGARETTES) - Neurological Hx Neurological Disorder: Yes (VERTIGO,NEAR SYNCOPE) Hx Dizziness: Yes Hx Vertigo: Yes - HEENT Hx HEENT Disorder: Yes Other/Comment: MENIERE's Disease - Renal Hx Renal Disorder: No - Endocrine/Metabolic Hx Hypothyroidism: Yes - Hematological/Oncological Hx Blood Disorders: No - Integumentary Hx Dermatological Disorder: No - Musculoskeletal/Rheumatological Hx Musculoskeletal Disorders: Yes (RIGHT KNEE ARTHROSCOPY) Hx Arthritis: Yes (rheumatoid) Hx Back Pain: Yes Hx Falls: Yes Hx Spinal Stenosis: Yes Hx Unsteady Gait: Yes Other/Comment: SCIATICA. rotator cuff tear to left shoulder. carpal tunnel syndrome - Gastrointestinal Hx Gastrointestinal Disorders: No - Genitourinary/Gynecological Hx Genitourinary Disorders: No - Psychiatric Hx Psychophysiologic Disorder: No Hx Substance Use: No - Surgical History Hx Cholecystectomy: Yes Hx Orthopedic Surgery: Yes (r carpal tunnel/r knee) - Anesthesia Hx Anesthesia: No Hx Anesthesia Reactions: No Hx Malignant Hyperthermia: No Family/Social History - Physician Review Nursing Documentation Reviewed: Yes Family/Social History: Unknown Family HX Smoking Status: Former Smoker Hx Alcohol Use: No Hx Substance Use: No Allergies/Home Meds Allergies/Adverse Reactions: Allergies No Known Allergies Allergy (Verified 06/29/17 04:37) Home Medications: Home Meds Medication Instructions Recorded Confirmed Levothyroxine [Synthroid] 75 mcg PO DAILY 07/06/16 08/02/17 Lisinopril [Zestril] 10 mg PO DAILY 07/06/16 08/02/17 Simvastatin 20 mg PO HS 07/06/16 08/02/17 amLODIPine [Norvasc] 10 mg PO DAILY 07/06/16 08/02/17 Meclizine [Meclizine*] 25 mg PO TID PRN 06/29/17 08/02/17 Methylprednisolone [Medrol] 0 mg PO DAILY 08/02/17 08/02/17 Review of Systems - Physician Review All systems were reviewed & negative as marked: Yes - Review of Systems Constitutional: absent: Fevers Respiratory: absent: SOB Cardiovascular: absent: Chest Pain Gastrointestinal: Nausea Neurological: Other (lightheadedness) Physical Exam Vital Signs Reviewed: Yes Vital Signs Temp Pulse Resp BP Pulse Ox 08/02/17 16:01 86 18 118/71 100 08/02/17 13:58 98.3 F 90 18 120/73 100 Temperature: Afebrile Blood Pressure: Normal Pulse: Regular Respiratory Rate: Normal Appearance: Positive for: Well-Appearing, Non-Toxic, Comfortable Pain Distress: None Mental Status: Positive for: Alert and Oriented X 3 - Systems Exam Head: Present: Atraumatic, Normocephalic Pupils: Present: PERRL Extroacular Muscles: Present: EOMI. No: Gaze Palsy, Entrapment, Other Conjunctiva: Present: Normal Medical Decision Making ED Course and Treatment: 08/02/17 Impression: 76 year old female with unremarkable physical exam complaining of lightheadedness and nausea since last night. no cp no sob. no abdominal pain. consider metabolic, infectious cardiac, intracranial etiology. Plan: -- CT Head -- EKG -- Chest X-ray -- Labs -- Urinalysis -- Ultrasound lower extremity -- Reassess and disposition Progress Notes: 08/02/17 17:54 pt reassesed: sitting in chair in nad. labs head ct us xr neg. pt offered observation in hospital , but declines. specifically request dc states will return with worsening - Lab Interpretations Lab Results: 08/02/17 14:30 08/02/17 14:30 Lab Results 08/02/17 14:35: Urine Color Yellow, Urine Appearance Clear, Urine pH 7.0, Ur Specific [place] 1.010, Urine Protein Negative, Urine Glucose (UA) Negative, Urine Ketones Negative, Urine Blood Trace-intact H, Urine Nitrate Negative, Urine Bilirubin Negative, Urine Urobilinogen 0.2, Ur Leukocyte Esterase Negative , Urine RBC 0 - 2, Urine WBC 0 - 2, Ur Epithelial Cells 1 - 3, Urine Bacteria Mod 08/02/17 14:30: Sodium 141, Potassium 4.0, Chloride 100, Carbon Dioxide 27, Anion Gap 18, BUN 7, Creatinine 0.6 L, Est GFR ( Amer) > 60, Est GFR (Non -Af Amer) > 60, Random Glucose 90, Calcium 9.8, Magnesium 2.4 H, Total Bilirubin 0.5, AST 71 H, ALT 66 H, Alkaline Phosphatase 128 H, Lactate Dehydrogenase 640, Total Creatine Kinase 40, Troponin I 0.01 D, NT-Pro-B Natriuret Pep 48.5, Total Protein 8.1, Albumin 4.2, Globulin 3.9, Albumin/ Globulin Ratio 1.1 08/02/17 14:30: PT 11.6, INR 1.02, APTT 33.6 08/02/17 14:30: WBC 7.6, RBC 4.37, Hgb 12.7, Hct 39.1, MCV 89.5, MCH 29.1, MCHC 32.5, RDW 14.9 H, Plt Count 311, MPV 8.6, Gran % 63.8, Lymph % (Auto) 26.5, [place] % (Auto) 7.4 H, Eos % (Auto) 2.0, Baso % (Auto) 0.3, Gran # 4.83, Lymph # ( Auto) 2.0, [place] # (Auto) 0.6, Eos # (Auto) 0.2, Baso # (Auto) 0.02 I have reviewed the lab results: Yes - RAD Interpretation Radiology Orders: 08/02/17 14:29 DUPLEX LOWER EXTRM VEIN BILAT [US] Stat 08/02/17 14:30 CHEST PORTABLE [RAD] Stat 08/02/17 14:31 HEAD W/O CONTRAST [CT] Stat Biology Instructor: Radiologist - EKG Interpretation Interpreted by ED Physician: Yes Type: 12 lead EKG - Scribe Statement The provider has reviewed the documentation as recorded by the Omayra Taylor Provider Scribe Attestation: All medical record entries made by the Scribe were at my direction and personally dictated by me. I have reviewed the chart and agree that the record accurately reflects my personal performance of the history, physical exam, medical decision making, and the department course for this patient. I have also personally directed, reviewed, and agree with the discharge instructions and disposition. Disposition/Present on Arrival - Present on Arrival Any Indicators Present on Arrival: No History of DVT/PE: No History of Uncontrolled Diabetes: No Urinary Catheter: No History Surgical Site Infection Following: None - Disposition Have Diagnosis and Disposition been Completed?: Yes Diagnosis: Dizziness Disposition: HOME/ ROUTINE Disposition Time: 17:56 Condition: STABLE Discharge Instructions (ExitCare): Lightheadedness (ED), Near Syncope (ED) Additional Instructions: return to er with worsening symptoms or concern. Referrals: Criss Moshre MD [Primary Care Provider] - Follow up with primary at [facility] [place] [Outside] - Follow up with primary [facility] [Outside] - Follow up with primary Trung Torres MD [Staff Provider] - Follow up with primary Ashkan Jacobsen MD [Staff Provider] - Follow up with primary
[2017-08-02 14:49] LABS: BASO # 0.02 K/mm3 (0.0-2.0); BASO % 0.3 % (0.0-3.0); EOS # 0.2 (0.0-0.7); GRAN # 4.83 (1.4-6.5); GRAN % 63.8 % (50.0-68.0); HEMOGLOBIN 12.7 g/dL (12.0-16.0); LYMPH % 26.5 % (22.0-35.0); MEAN CELL VOLUME 89.5 fl (80.0-105.0); MEAN CORPUSCULAR HEMOGLOBIN 29.1 pg (25.0-35.0); MEAN CORPUSCULAR HGB CONC 32.5 g/dl (31.0-37.0); MEAN PLATELET VOLUME 8.6 fl (7.0-11.0); MONO # 0.6 (0.1-0.6); MONO % 7.4 % (1.0-6.0); RBC 4.37 10^6/uL (3.5-6.1); RED CELL DISTRIBUTION WIDTH 14.9 % (11.5-14.5); WHITE BLOOD COUNT 7.6 10^3/ul (4.5-11.0)
[2017-08-02 15:02] LABS: ALB/GLOB RATIO 1.1 (1.1-1.8); ALBUMIN 4.2 g/dL (3.0-4.8); ALT/SGPT 66 U/L (7-56); AST/SGOT 71 U/L (14-36); BLOOD UREA NITROGEN 7 mg/dL (7-21); CALCIUM 9.8 mg/dL (8.4-10.5); GFR AFRICAN-AMERICAN > 60; GFR NON-AFRICAN AMERICAN > 60; INR 1.02 (0.93-1.08); MAGNESIUM 2.4 mg/dL (1.7-2.2); PARTIAL THROMBOPLASTIN TIME 33.6 Seconds (25.1-36.5); PROTHROMBIN TIME 11.6 SECONDS (9.4-12.5)
[2017-08-02 15:08] LABS: URINE BILIRUBIN NEGATIVE (NEGATIVE); URINE BLOOD TRACE-INTACT (NEGATIVE); URINE GLUCOSE (UA) NEGATIVE (NEGATIVE); URINE LEUKOCYTE ESTERASE NEGATIVE Leu/uL (NEGATIVE); URINE NITRATE NEGATIVE (NEGATIVE); URINE PROTEIN NEGATIVE mg/dL (<30 mg/dL); URINE UROBILINOGEN 0.2 E.U./dL (<1 E.U./dL)
[2017-08-02 15:09] LABS: URINE APPEARANCE CLEAR (CLEAR); URINE COLOR YELLOW (YELLOW)
[2017-08-02 15:09] LABS: B-TYPE NATRIURETIC PEPTIDE 48.5 pg/mL (0-450)
[2017-08-02 15:12] LABS: TROPONIN I 0.01 ng/mL
--- NOTE | 2017-08-02 15:12 | CT ---
PROCEDURE: CT HEAD WITHOUT CONTRAST. HISTORY: lightheaded COMPARISON: 10/30/2016 CT TECHNIQUE: Axial computed tomography images were obtained through the head/brain without intravenous contrast. Radiation dose: Total exam DLP = 843 mGy-cm. This CT exam was performed using one or more of the following dose reduction techniques: Automated exposure control, adjustment of the mA and/or kV according to patient size, and/or use of iterative reconstruction technique. FINDINGS: HEMORRHAGE: No intracranial hemorrhage. BRAIN: No mass effect or edema. Chronic microvascular changes. No acute finding VENTRICLES: Unremarkable. No hydrocephalus. CALVARIUM: Unremarkable. PARANASAL SINUSES: Unremarkable as visualized. No significant inflammatory changes. MASTOID AIR CELLS: Unremarkable as visualized. No inflammatory changes. OTHER FINDINGS: None. IMPRESSION: No acute intracranial findings
[2017-08-02 15:25] LABS: URINE BACTERIA MOD (NEG); URINE RBC 0 - 2 /hpf (0-2); URINE WBC 0 - 2 /hpf (0-6)
--- NOTE | 2017-08-02 15:27 | RAD ---
HISTORY: weakness COMPARISON: 10/30/2016 FINDINGS: LUNGS: No active pulmonary disease. PLEURA: No significant pleural effusion identified, no pneumothorax apparent. CARDIOVASCULAR: Normal. OSSEOUS STRUCTURES: No significant abnormalities. VISUALIZED UPPER ABDOMEN: Normal. OTHER FINDINGS: None. IMPRESSION: No active disease.
[2017-08-02 18:04] VITALS: BP 123/78; PULSE 72; O2SAT 98
--- NOTE | 2017-08-02 20:35 | US ---
HISTORY: Leg pain and swelling. Evaluate for DVT PHYSICIAN(S): Nav Peralta MD. TECHNIQUE: Duplex sonography and color-flow Doppler with graded compression were used to evaluate the deep venous systems of both lower extremities. FINDINGS: The visualized deep venous systems of both lower extremities are sonographically normal and compressible. Normal wave forms and augmentation are seen. There is no sonographic evidence for deep venous thrombosis in the visualized segments of both lower extremities. IMPRESSION: No sonographic evidence for deep venous thrombosis in the visualized segments of both lower extremities.
--- NOTE | 2017-08-03 11:22 | CARD ---
APPROVED REPORT EKG Measurement Heart [id number] <Conclusion> Normal sinus rhythm Possible Left atrial enlargement Borderline ECG
== END 2017-08-02 18:21 | disposition home or self-care (01) ==
LOC: ED 13:50
DX: R42 Dizziness and giddiness (principal); I10 Essential (primary) hypertension; E03.9 Hypothyroidism, unspecified; Z87.891 Personal history of nicotine dependence

== ENCOUNTER 2017-09-23 17:32 | Emergency (ER) | payer MEDICARE ==
[2017-09-23 17:32] VITALS: BMI 31.0
[2017-09-23 17:48] VITALS: TEMP 98.5
--- NOTE | 2017-09-23 17:49 | ED PDOC ---
Arrival/HPI - General Time Seen by Provider: 09/23/17 17:41 Historian: Patient, EMS - History of Present Illness Narrative History of Present Illness (Text): 09/23/17 17:43 76 y/o female, pmh including htn/hyperlipidemia/hypothyroidism/vertigo, nkda, biba c/o dizziness started 6am this morning after waking up from sleep with no fall or trauma. Pt. stated that she was fine last night before sleeping, woke up this morning around 6am which she feels dizziness, aggravated by sudden head movement, no numbness or tingling, no rash, no other medical or psychological complaints. Past Medical History - Provider Review Nursing Documentation Reviewed: Yes - Infectious Disease Hx of Infectious Diseases: None - Cardiac Hx Cardiac Disorders: Yes Hx Hypertension: Yes - Pulmonary Hx Respiratory Disorders: Yes (H/O OF SMOKING CIGARETTES) - Neurological Hx Neurological Disorder: Yes (VERTIGO,NEAR SYNCOPE) Hx Dizziness: Yes Hx Vertigo: Yes - HEENT Hx HEENT Disorder: Yes Other/Comment: MENIERE's Disease - Renal Hx Renal Disorder: No - Endocrine/Metabolic Hx Hypothyroidism: Yes - Hematological/Oncological Hx Blood Disorders: No - Integumentary Hx Dermatological Disorder: No - Musculoskeletal/Rheumatological Hx Musculoskeletal Disorders: Yes (RIGHT KNEE ARTHROSCOPY) Hx Arthritis: Yes (rheumatoid) Hx Back Pain: Yes Hx Falls: Yes Hx Spinal Stenosis: Yes Hx Unsteady Gait: Yes Other/Comment: SCIATICA. rotator cuff tear to left shoulder. carpal tunnel syndrome - Gastrointestinal Hx Gastrointestinal Disorders: No - Genitourinary/Gynecological Hx Genitourinary Disorders: No - Psychiatric Hx Psychophysiologic Disorder: No Hx Substance Use: No - Surgical History Hx Cholecystectomy: Yes Hx Orthopedic Surgery: Yes (r carpal tunnel/r knee) - Anesthesia Hx Anesthesia: No Hx Anesthesia Reactions: No Hx Malignant Hyperthermia: No Family/Social History - Physician Review Nursing Documentation Reviewed: Yes Family/Social History: Unknown Family HX Smoking Status: Former Smoker Hx Alcohol Use: No Hx Substance Use: No Allergies/Home Meds Allergies/Adverse Reactions: Allergies No Known Allergies Allergy (Verified 09/23/17 17:47) Home Medications: Home Meds Medication Instructions Recorded Confirmed Levothyroxine [Synthroid] 75 mcg PO DAILY 07/06/16 09/23/17 Lisinopril [Zestril] 10 mg PO DAILY 07/06/16 09/23/17 Simvastatin 20 mg PO HS 07/06/16 09/23/17 amLODIPine [Norvasc] 10 mg PO DAILY 07/06/16 09/23/17 Meclizine [Meclizine*] 25 mg PO TID PRN 06/29/17 09/23/17 Methylprednisolone [Medrol] 0 mg PO DAILY 08/02/17 09/23/17 Review of Systems - Review of Systems Constitutional: absent: Fatigue, Fevers Eyes: absent: Vision Changes ENT: absent: Hearing Changes Respiratory: absent: SOB, Cough Cardiovascular: absent: Chest Pain Gastrointestinal: absent: Abdominal Pain, Nausea, Vomiting Skin: absent: Rash, Pruritis Neurological: Dizziness. absent: Headache, Focal Weakness, Gait Changes, Speech Changes, Facial Droop, Seizure Psychiatric: absent: Anxiety, Depression, Suicidal Ideation Physical Exam Vital Signs Temp Pulse Resp BP Pulse Ox 09/23/17 19:54 74 18 123/63 99 09/23/17 17:39 98.5 F 92 H 19 132/62 98 - Systems Exam Head: Present: Atraumatic, Normocephalic Pupils: Present: PERRL Extroacular Muscles: Present: EOMI Conjunctiva: Present: Normal Mouth: Present: Moist Mucous Membranes Neck: Present: Normal Range of Motion Respiratory/Chest: Present: Clear to Auscultation, Good Air Exchange. No: Respiratory Distress, Accessory Muscle Use Cardiovascular: Present: Regular Rate and Rhythm, Normal S1, S2. No: Murmurs Abdomen: Present: Normal Bowel Sounds. No: Tenderness, Distention, Peritoneal Signs Back: Present: Normal Inspection Upper Extremity: Present: Normal Inspection. No: Cyanosis, Edema Lower Extremity: Present: Normal Inspection. No: Edema Neurological: Present: GCS=15, CN II-XII Intact, Speech Normal, Motor Func Grossly Intact, Memory Normal, Other (+vladislav iverson pike, no drift, no paralysis, no focal neurological deficits. ) Skin: Present: Warm, Dry, Normal Color. No: Rashes Psychiatric: Present: Alert, Oriented x 3, Normal Insight, Normal Concentration Medical Decision Making ED Course and Treatment: 09/23/17 17:43 -labs/ua/cardiac enzyme -CT head -Chest xray -EKG -IVF/meclizine -ekg monitor -observe and reassess 09/23/17 21:13 -Orthostatic v/s show no acute bp dropping. -NIHSS is 0 -EKG: NSR @ 89 BPM, no ST elevation or depression, no T wave inversion, compared with previous ekg. -CT Head Vpdj-mw-iayohyej atrophy. No intracranial hemorrhage. No mass. -Chest xray show no active disease. -Labs show no acute findings except potassium 3.1 (potassium chloride 40meq po ordered). -UA show no UTI -Pt. feels walking with normal gait and posture, no focal neurological deficits , feeling completely well after the IVF and meclizine, offered admission for over night observation including further testing such as MRI and carotid sonogram of the neck but the patient declined. -Case discussed with ER attending Dr. Sultana including labs/radiology results, he agreed that the patient can be discharged home. -Discharge home with meclizine, stay hydrated, bed rest, follow up with your own pmd and neurologist within 2 days, return to the ER for any new or worsening signs or symptoms. - Lab Interpretations Lab Results: 09/23/17 18:30 09/23/17 18:30 Lab Results 09/23/17 20:00: Urine Color Yellow, Urine Appearance Clear, Urine pH 7.0, Ur Specific [place] 1.010, Urine Protein Negative, Urine Glucose (UA) Negative, Urine Ketones Negative, Urine Blood Trace-intact H, Urine Nitrate Negative, Urine Bilirubin Negative, Urine Urobilinogen 0.2, Ur Leukocyte Esterase Negative , Urine RBC Negative, Urine WBC Negative, Ur Epithelial Cells None 09/23/17 18:30: Sodium 142, Potassium 3.1 L, Chloride 102, Carbon Dioxide 29, Anion Gap 14, BUN 11, Creatinine 0.9, Est GFR ( Amer) > 60, Est GFR (Non- Af Amer) > 60, Random Glucose 118 H, Calcium 9.6, Magnesium 2.4 H, Total Bilirubin 0.2, AST 26, ALT 31, Alkaline Phosphatase 117, Lactate Dehydrogenase 486, Total Creatine Kinase 48, Troponin I 0.02 D, NT-Pro-B Natriuret Pep 87.6, Total Protein 7.6, Albumin 4.0, Globulin 3.6, Albumin/Globulin Ratio 1.1 09/23/17 18:30: WBC 7.7, RBC 4.07, Hgb 11.9 L, Hct 35.8 L, MCV 88.0, MCH 29.2, MCHC 33.2, RDW 14.0, Plt Count 342, MPV 8.2, Gran % 66.8, Lymph % (Auto) 24.7, [place] % (Auto) 6.9 H, Eos % (Auto) 1.3 L, Baso % (Auto) 0.3, Gran # 5.12, Lymph # (Auto) 1.9, [place] # (Auto) 0.5, Eos # (Auto) 0.1, Baso # (Auto) 0.02 I have reviewed the lab results: Yes - RAD Interpretation Radiology Orders: 09/23/17 17:50 HEAD W/O CONTRAST [CT] Stat 09/23/17 17:51 CHEST PORTABLE [RAD] Stat CT Head: Brain: Etjt-ci-[id number] atrophy. No intracranial hemorrhage. No mass. Several scattered foci of decreased attenuation within periventricular/subcortical white matter. No definite edema. Ventricles: No hydrocephalus. Bones/joints: No acute fracture. Soft tissues: Unremarkable. Vasculature: Mild atherosclerotic disease of intracranial arteries. Sinuses: Scattered minimal mucosal thickening of ethmoid sinuses. Mastoid air cells: No mastoid effusion. Orbits: Unremarkable as visualized. IMPRESSION: 1. Nonspecific white matter changes. Acute infarction may be CT occult within first 24 hours. If a focal deficit persists, consider followup CT or MRI for further evaluation. 2. Incidental/non-acute findings are described above. MADELEINE NUNEZ | Preliminary Radiology Report PRINTER'S ASSISTANT (QA) DISCREPANCY? If there is a discrepancy between the preliminary and final interpretation, please notify [facility] via [email or web address]. If you do not have access to our QA portal, call our QA team at [phone] CONFIDENTIALITY STATEMENT This report is intended only for the use of the referring physician, and only in accordance with law, If you received this in error, call [phone] Page 2 of 2 Thank you for allowing us to participate in the care of your patient. Dictated and Authenticated by: Ayan Brito MD 09/23/2017 8:58 PM Eastern Time ([place] & [place]) Chest xray: Maternal Fetal Physician: Radiologist - EKG Interpretation EKG Interpretation (Text): 09/23/17 17:56 -EKG: NSR @ 89 BPM, no ST elevation or depression, no T wave inversion, compared with previous ekg. Interpreted by ED Physician: Yes Type: 12 lead EKG Comparison: Com.w/previous EKG - Medication Orders Current Medication Orders: Discontinued Medications Sodium Chloride (Sodium Chloride 0.9%) 500 mls @ 999 mls/hr IV .Q31M STA Stop: 09/23/17 18:20 Last Admin: 09/23/17 18:13 Dose: 999 mls/hr eMAR Start Stop Document 09/23/17 18:13 EQ (Rec: 09/23/17 18:13 EQ [id number]) Intravenous Solution Start Date 09/23/17 Start Time 18:13 Meclizine HCl (Antivert) 50 mg PO STAT STA Stop: 09/23/17 17:51 Last Admin: 09/23/17 18:13 Dose: 25 mg Comments: JOSE Montemayor aware. pt refused to take 50mg because it makes her "too sleepy". Potassium Chloride (K-Dur 20 Meq Er Tab) 40 meq PO STAT STA Stop: 09/23/17 19:04 Last Admin: 09/23/17 19:49 Dose: 40 meq - PA / [employer] / Resident Statement /DO has reviewed & agrees with the documentation as recorded. Disposition/Present on Arrival - Present on Arrival Any Indicators Present on Arrival: No History of DVT/PE: No History of Uncontrolled Diabetes: No Urinary Catheter: No History of Decub. Ulcer: No History Surgical Site Infection Following: None - Disposition Have Diagnosis and Disposition been Completed?: Yes Diagnosis: Vertigo Disposition: HOME/ ROUTINE Disposition Time: 20:40 Patient Plan: Discharge Patient Problems: Current Active Problems Problem Status Onset Vertigo Acute Condition: IMPROVED Additional Instructions: -Discharge home with meclizine, stay hydrated, bed rest, follow up with your own pmd and neurologist within 2 days, return to the ER for any new or worsening signs or symptoms. Prescriptions: Meclizine [Meclizine*] 25 mg PO Q6 #30 tab Referrals: Becki Apodaca, [Primary Care Provider] - Follow up with primary
[2017-09-23] MEDS ORDERED: Sodium Chloride 0.9% 500 ML IV STA (17:50)
[2017-09-23 18:48] LABS: BASO # 0.02 K/mm3 (0.0-2.0); BASO % 0.3 % (0.0-3.0); EOS # 0.1 (0.0-0.7); EOS % 1.3 % (1.5-5.0); GRAN # 5.12 (1.4-6.5); GRAN % 66.8 % (50.0-68.0); HEMOGLOBIN 11.9 g/dL (12.0-16.0); LYMPH # 1.9 (1.2-3.4); LYMPH % 24.7 % (22.0-35.0); MEAN CORPUSCULAR HEMOGLOBIN 29.2 pg (25.0-35.0); MEAN CORPUSCULAR HGB CONC 33.2 g/dl (31.0-37.0); MEAN PLATELET VOLUME 8.2 fl (7.0-11.0); MONO # 0.5 (0.1-0.6); MONO % 6.9 % (1.0-6.0); RBC 4.07 10^6/uL (3.5-6.1); WHITE BLOOD COUNT 7.7 10^3/ul (4.5-11.0)
[2017-09-23 18:57] LABS: ALB/GLOB RATIO 1.1 (1.1-1.8); ALT/SGPT 31 U/L (7-56); AST/SGOT 26 U/L (14-36); BLOOD UREA NITROGEN 11 mg/dL (7-21); CALCIUM 9.6 mg/dL (8.4-10.5); GFR AFRICAN-AMERICAN > 60; GFR NON-AFRICAN AMERICAN > 60
[2017-09-23] MEDS ORDERED: Potassium Chloride 20 mEq ER Tab PO STA (19:03)
[2017-09-23 19:08] LABS: B-TYPE NATRIURETIC PEPTIDE 87.6 pg/mL (0-450); TROPONIN I 0.02 ng/mL
[2017-09-23 19:55] VITALS: BP 123/63; PULSE 74; RESP 18; O2SAT 99
[2017-09-23 20:43] LABS: URINE BILIRUBIN NEGATIVE (NEGATIVE); URINE BLOOD TRACE-INTACT (NEGATIVE); URINE GLUCOSE (UA) NEGATIVE (NEGATIVE); URINE LEUKOCYTE ESTERASE NEGATIVE Leu/uL (NEGATIVE); URINE PROTEIN NEGATIVE mg/dL (<30 mg/dL); URINE UROBILINOGEN 0.2 E.U./dL (<1 E.U./dL)
[2017-09-23 20:44] LABS: URINE APPEARANCE CLEAR (CLEAR); URINE COLOR YELLOW (YELLOW)
[2017-09-23 20:53] LABS: URINE RBC NEGATIVE /hpf (0-2); URINE WBC NEGATIVE /hpf (0-6)
--- NOTE | 2017-09-24 08:14 | CT ---
PROCEDURE: CT HEAD WITHOUT CONTRAST. HISTORY: dizziness x 12 hours COMPARISON: None available. TECHNIQUE: Axial computed tomography images were obtained through the head/brain without intravenous contrast. Radiation dose: Total exam DLP = 837 mGy-cm. This CT exam was performed using one or more of the following dose reduction techniques: Automated exposure control, adjustment of the mA and/or kV according to patient size, and/or use of iterative reconstruction technique. FINDINGS: HEMORRHAGE: No intracranial hemorrhage. BRAIN: No mass effect or edema. No atrophy or chronic microvascular ischemic changes. VENTRICLES: Unremarkable. No hydrocephalus. CALVARIUM: Unremarkable. PARANASAL SINUSES: Unremarkable as visualized. No significant inflammatory changes. MASTOID AIR CELLS: Unremarkable as visualized. No inflammatory changes. OTHER FINDINGS: The report concurs with the preliminary [facility] report IMPRESSION: No acute findings
--- NOTE | 2017-09-24 09:56 | RAD ---
HISTORY: medical clearance COMPARISON: 08/02/2017. FINDINGS: LUNGS: The lungs are well inflated and clear. PLEURA: No significant pleural effusion identified, no pneumothorax apparent. CARDIOVASCULAR: Normal. OSSEOUS STRUCTURES: No significant abnormalities. VISUALIZED UPPER ABDOMEN: Normal. OTHER FINDINGS: None. IMPRESSION: No active pulmonary disease.
--- NOTE | 2017-09-24 19:42 | CARD ---
APPROVED REPORT EKG Measurement Heart [id number] 156P50 [id number] <Conclusion> Normal sinus rhythm Normal ECG
== END 2017-09-23 21:20 | disposition home or self-care (01) ==
LOC: ED 17:32
DX: R42 Dizziness and giddiness (principal); E78.5 Hyperlipidemia, unspecified; I10 Essential (primary) hypertension; E03.9 Hypothyroidism, unspecified; Z87.891 Personal history of nicotine dependence
CPT/HCPCS: 70450; 71045; 80053; 81001; 82550; 83615; 83735; 83880; 84484; 85025; 93005; 99285; J7040